=== PATIENT | female | born 1995 | race American Indian/Alaskan Native ===

== ENCOUNTER 2018-05-11 16:08 | Emergency (ER) | payer MEDICAID, SELFPAY ==
[2018-05-11 16:12] VITALS: BP 117/82; PULSE 75; RESP 14; TEMP 36.6; O2SAT 95
[2018-05-11] MEDS: ACETAMINOPHEN 325 MG TABLET 975 MG PO (16:17)
[2018-05-11] MEDS: IBUPROFEN 400 MG TABLET 800 MG PO (16:18)
--- NOTE | 2018-05-11 18:18 | ED_ITS ---
HPI - URI/Sore Throat General Chief Complaint: Upper Respiratory Symptoms Stated Complaint: LEFT EAR PAIN THROAT HURTS Time Seen by Provider: 05/11/18 18:07 Source: patient Mode of arrival: ambulatory Limitations: no limitations History of Present Illness HPI Narrative: Patient is a 22-year-old female who presents with left ear pain. She has been having fever body aches and upper respiratory symptoms ongoing for the last 3 days. However her left ear 3rd hurting quite badly today. She was given Tylenol and Motrin in the ED she no longer has pain. She was having some mild sore throat. No shortness of breath or productive cough. She has no neck pain or headache. MD Complaint: sore throat (Dry), nasal congestion and sinus pain Onset (ago): day(s) (3) Severity: mild Relieving factors: NSAID Related Data Previous Rx's Medication Instructions Recorded amoxicillin 500 mg PO TID 7 Days #21 cap 05/11/18 Allergies Allergy/AdvReac Type Severity Reaction Status Date / Time No Known Drug Allergies Allergy Verified 05/11/18 16:14 Review of Systems Review of Systems ROS Unobtainable: All systems reviewed & are unremarkable except as noted in HPI and below Constitutional Denies chills, Denies fever(s), Denies lethargy and Denies weakness ENT Ears, Nose, Mouth, and Throat: Reports as per HPI Cardiovascular Denies chest pain, Denies irregular heart rhythm, Denies lightheadedness, Denies palpitations, Denies dyspnea and Denies orthopnea Respiratory Denies change in phlegm color, Denies chest congestion, Reports cough, Denies pain on inspiration and Denies dyspnea Gastrointestinal Gastrointestinal: Denies abdominal pain, Denies change in bowel habits, Denies diarrhea, Denies nausea and Denies vomiting Musculoskeletal Denies back pain, Denies muscle weakness, Denies numbness and Denies tingling Integumentary/Breasts Denies pruritus, Denies erythema, Denies rash and Denies wounds Neurologic Denies numbness, Denies tingling and Denies weakness Endocrine Denies palpitations [facility] Social History Smoking Status: Never smoker Social History Smoking Status: Never smoker Exam Initial Vital Signs Initial Vital Signs: Vital Signs Temperature 97.8 F 05/11/18 16:12 Pulse Rate 75 05/11/18 16:12 Respiratory Rate 14 05/11/18 16:12 Blood Pressure 117/82 02/04/19 16:12 Pulse Oximetry 95 05/11/18 16:12 GENERAL: Well-appearing, well-nourished and in no acute distress. HEENT: Head atraumatic,EOMI, pupils reactive, neck is symmetric EARS: Low left tympanic membrane is erythematous slightly bulging mastoid is nontender PHARYNX:] No erythema, no tonsillar exudate, no cervical lymphadenopathy CARDIOVASCULAR: Regular rate and rhythm without murmurs, rubs or gallops. RESPIRATORY: Breath sounds equal bilaterally, no wheezes rales or rhonchi. ABDOMEN: Soft, nontender. Normoactive bowel sounds all 4 quadrants. No guarding or rebound. EXTREMITIES: Normal range of motion, no clubbing or edema. Neurovascularly intact NEUROLOGICAL: Alert and oriented x4.Normal gait and speech. Cranial nerves II through XII grossly intact. SKIN: Warm, dry, no laceration, no petechiae, no rashes or lesions. Course Orders Ordered: Discontinued Medications Acetaminophen (Tylenol) 975 mg PO NOW ONE Stop: 05/11/18 16:15 Last Admin: 05/11/18 16:17 Dose: 975 mg Ibuprofen (Advil) 800 mg PO NOW ONE Stop: 05/11/18 16:15 Last Admin: 05/11/18 16:18 Dose: 800 mg Vital Signs - 8 hr 05/11/18 16:12 Temperature 97.8 F Pulse Rate 75 Respiratory Rate 14 Blood Pressure 117/82 Pulse Oximetry 95 MDM - URI/Sore Throat Lab Data Point of Care Testing Rapid Strep A Negative Discharge Plan Departure Patient Disposition: Home Clinical Impression: Acute left otitis media Discharge Date/Time: 05/11/18 18:25 Interventions: ED Discharge Assessment Last Done: 05/11/18 18:25 Instructions: Middle Ear Infection Activity Restrictions/Additional Instructions: *You have been diagnosed with left ear infection *What to do: Rest, fever control *Continue to take medications as directed Amoxicillin 500 3 times a day for 7 days *Follow up with your primary care provider in 2-3 days *Return to ER if you should have increasing pain, persistent fever or any new, worsening or concerning symptoms Prescriptions: New amoxicillin 500 mg capsule 500 mg PO TID 7 Days Qty: 21 RF: 0
== END 2018-05-11 18:25 | disposition home or self-care (01) ==
PROVIDERS: Emergency Provider Emergency Medicine
DX: H66.92 Otitis media, unspecified, left ear (principal)
CPT/HCPCS: 87880; 99283

== ENCOUNTER 2019-05-24 09:50 | Observation (INO) | payer MEDICAID, SELFPAY ==
[2019-05-24 09:59] VITALS: BP 107/67; PULSE 57; RESP 15; TEMP 36.7; O2SAT 100; BMI 28.3
[2019-05-24 10:06] LABS: RBC Urine None Seen (0-5/HPF)
[2019-05-24 10:18] LABS: Add Manual Diff / Slide Review NO; Basophils Absolute Auto 100 /uL (0-100); Basophils Percent Auto 1.3 % (0-2); Eosinophils Absolute Auto 100 /uL (0-450); Eosinophils Percent Auto 2.1 % (2-4); Hematocrit 41.4 % (36-46); Hemoglobin 14.1 g/dL (12.0-16.0); Lymphocytes Absolute Auto 2000 /uL (1100-4500); Lymphocytes Percent Auto 29.1 % (25-40); Mean Corpuscular HGB Conc 34.1 % (30-36); Monocytes Absolute Auto 400 /uL (0-900); Monocytes Percent Auto 5.1 % (3-14); Neutrophils Absolute Auto 4400 /uL (1500-7000); Neutrophils Percent Auto 62.4 % (50-75); Platelet Count 312 X10^3/uL (150-400); Red Blood Cell Count 4.88 X10^6/uL (4.0-5.2); Red Cell Distribution Width 14.7 % (11.6-14.8)
[2019-05-24 10:23] LABS: INR 1.1 (0.9-1.3); Prothrombin Time 13.1 SECONDS (10.1-12.7)
[2019-05-24 10:26] LABS: PTT Partial Thromboplastin Tim 28 SECONDS (26.4-36.2)
[2019-05-24 10:28] LABS: Alanine Aminotransferase 36 IU/L (<35); Albumin 4.3 g/dL (3.5-5.0); Albumin Globulin Ratio 1.2 (1.0-2.8); Alkaline Phosphatase 84 U/L (38-126); Aspartate Aminotransferase 115 IU/L (14-36); Bilirubin Total 0.5 mg/dL (0.2-1.3); Blood Urea Nitrogen 7 mg/dL (7-17); Calcium 9.3 mg/dL (8.4-10.2); Carbon Dioxide 30 mmol/L (22-32); Chloride 105 mmol/L (98-107); Estimated Glomerular Filt Rate > 60.0 mL/min (>60); Globulin 3.6 g/dL (1.7-4.1); Glucose 101 mg/dL (70-100); HEMOLYSIS 23 (0-50); Lipase 82 U/L (23-300); Potassium 3.9 mmol/L (3.4-5.1); Sodium 141 mmol/L (137-145); Total Protein 7.9 g/dL (6.3-8.2)
--- NOTE | 2019-05-24 10:36 | DI.US.S_ITS ---
PROCEDURE: US ABDOMEN LIMITED INDICATIONS: RIGHT UPPER QUADRANT PAIN TECHNIQUE: Real-time focused scanning was performed of the abdomen, with image documentation. COMPARISON: [facility], US, US ABDOMEN COMPLETE, 02/19/2019, 15:00. FINDINGS: Visualized liver demonstrates normal size and diffusely increased echotexture. There are gallstones. There is a 7.4 mm stone lodged in the gallbladder neck. No gallbladder wall thickening or pericholecystic fluid. The sonographic Voss's sign is positive. Common bile duct is dilated measuring 10.2 mm in diameter. Visualized pancreas is normal. IMPRESSION: 1. Cholelithiasis. There is a 7.4 mm stone lodged in the gallbladder neck. No other wall thickening or pericholecystic fluid. There is, however, positive sonographic Voss sign. 2. Dilated common bile duct. Please correlate with serum bilirubin for biliary obstruction. 3. Diffusely increased hepatic echotexture. This finding is most likely secondary to hepatic fatty infiltration although other hepatocellular disease may have a similar appearance. Recommend clinical correlation. Dictated by: Kevin Vargas M.D. on 05/24/2019 at 11:25 Approved by: Kevin Vargas M.D. on 05/24/2019 at 11:30
--- NOTE | 2019-05-24 10:36 | DI.RAD.S_ITS ---
PROCEDURE: XR ACUTE ABDOMEN SERIES INDICATIONS: abdominal cramps and chest pain TECHNIQUE: One view chest and two views of the abdomen were acquired. COMPARISON: [facility], , ABDOMEN COMPLETE, 02/19/2019, 15:00. FINDINGS: Surgical changes and devices: None. Chest: Lungs are clear. Heart size is normal. No pleural effusions. No pneumoperitoneum. Abdomen: Bowel gas pattern is normal. No suspicious calcifications. Visualized solid organ contours appear normal. Bones: No suspicious bony lesions. IMPRESSION: 1. No bowel obstruction. 2. No acute cardiopulmonary process. Dictated by: Jay Lamb M.D. on 05/24/2019 at 10:24 Approved by: Jay Lamb M.D. on 05/24/2019 at 10:25
[2019-05-24 10:48] LABS: Squamous Epithelial Cell Urine 1-5 /HPF (0-5/HPF); WBC Urine 0-1/HPF (0-5/HPF)
[2019-05-24 10:49] LABS: Amorphous Sediment Urine 2+; Bacteria Urine Few (2-10); Culture Indicated Urine Cult Not Indicated
[2019-05-24] MEDS: DICYCLOMINE 10 MG CAPSULE 20 MG PO (10:49)
[2019-05-24] MEDS: KETOROLAC 60 MG/2 ML VIAL 30 MG IV (10:49)
[2019-05-24] MEDS: PANTOPRAZOLE 40 MG VIAL IV (10:49)
[2019-05-24] MEDS: ONDANSETRON 4 MG/2 ML INJ IV (10:49)
[2019-05-24 10:50] LABS: Pregnancy Test Urine Negative (Negative)
--- NOTE | 2019-05-24 11:12 | ED.ABDPAIN ---
HPI - Abdominal Pain General Chief Complaint: Abdominal Pain Stated Complaint: abomdinal pain Time Seen by Provider: 05/24/19 10:27 Source: patient Mode of arrival: Ambulatory History of Present Illness HPI narrative: CC: Epigastric abdominal pain History of present illness: The patient is a 23-year-old female who presents to the emergency department complaining that she developed severe epigastric pain that was sharp in nature radiating straight through to her back. The pain started at approximately 2:00 a.m. in the morning when it woke her from sleep. At 7:30 a.m. she ate breakfast and the pain got worse. Last night she ate dinner at [facility] at approximately 9:00 p.m.. She has had similar pains before and was treated at [place]. She was told at that time she had something wrong with her pancreas. She denies ever being told that she had troubles with her golf bladder. She has had no indigestion. She denies a history of irritable bowel syndrome peptic ulcer disease Crohn's disease ulcerative colitis. She does not smoke cigarettes or use any drugs she periodically drinks alcohol. She has felt feverish but has not had chills or sweats. She denies any shortness of breath cough. The chest pain is sharp. She has had nausea and vomiting without hematemesis coffee-ground emesis. She has had no diarrhea and has not had melena or hematochezia. She denies any urinary symptoms. Related Data Home Medications Medication Instructions Recorded Confirmed No Known Home Medications 05/24/19 05/24/19 Allergies Allergy/AdvReac Type Severity Reaction Status Date / Time No Known Drug Allergies Allergy Verified 05/24/19 09:59 Review of Systems Review of Systems Narrative: Review of systems were negative except for those mentioned in the history of present illness. Patient History Social History household members: family Smoking Status: Never smoker Smoking Status: Never smoker alcohol intake frequency: 0-2 drinks per day Substance Use Type: does not use Exam Narrative Exam Narrative: PHYSICAL EXAM: CONSTITUTIONAL: Awake, Alert, Oriented, Coherent, Cooperative in moderate distress crying holding her abdomen HEAD: AT/NC EENT: PERRL, FROM of eyes, no discharge, no nystagmus Oral mucosa is moist and pink, posterior pharynx is without erythema or exudate. NECK: Supple, no obvious JVD, Trachea is midline without stridor, no palpable LN or masses. SPINE: No gross deformity, no palpable tenderness of the cervical, thoracic, lumbar or sacral spine. No CVA tenderness. THORAX: No deformity, retractions, chest wall tenderness, subcutaneous air or crepitice. LUNGS: Clear with symmetrical breath sounds without respiratory distress HEART: Normal heart tones, regular rhythm and rate without murmur. ABDOMEN: Tender to palpation in the right upper quadrant and epigastrium with mild guarding no rebound EXTREMITIES: No edema, cyanosis, deformity or tenderness. SKIN: No rash, bruising, petechiae or purpura. NEURO: Awake, alert, oriented, conversive, cranial nerves II-XII are symmetrical and normal, moves all 4 extremities and is ambulatory Initial Vital Signs Initial Vital Signs: Vital Signs Temperature 98.1 F 05/24/19 09:59 Pulse Rate 57 L 05/24/19 09:59 Respiratory Rate 15 05/24/19 09:59 Blood Pressure 107/67 05/24/19 09:59 Pulse Oximetry 100 05/24/19 09:59 Course Course Course Narrative: The patient's ultrasound of the right upper quadrant revealed the common bile duct to be dilated there was a 7 mm stone in the neck of the gallbladder according to the site supervising technical operator. There was no evidence of acute cholecystitis. Call was placed to Dr. Membreno the general surgeon on-call and the patient was admitted to his service. She was administered 2 g of cefotetan Orders Ordered: Sodium Chloride (Normal Saline 0.9%) 1,000 mls @ 150 mls/hr IV CONT RAUL Last Admin: 05/24/19 14:13 Dose: 150 mls/hr Documented by: Infusion: 05/24/19 14:13 Dose: 150 mls/hr Documented by: Admin: 05/24/19 12:11 Dose: 150 mls/hr Documented by: SCANAPO Influenza Virus Vaccine (Flu Vaccine) 0.5 ml IM .ONCE ONE Stop: 05/25/19 09:06 Discontinued Medications Dicyclomine HCl (Bentyl) 20 mg PO NOW ONE Stop: 05/24/19 10:37 Last Admin: 05/24/19 10:49 Dose: 20 mg Documented by: SCANAPO Cefotetan Disodium/Dextrose (Cefotan) 2 gm in 50 mls @ 100 mls/hr IV NOW ONE Stop: 05/24/19 12:33 Last Infusion: 05/24/19 13:09 Dose: 0 mls/hr Documented by: Admin: 05/24/19 12:10 Dose: 100 mls/hr Documented by: APOLONIA Ketorolac Tromethamine (Toradol) 30 mg IV INTRA-OP ONE Stop: 05/24/19 10:37 Last Admin: 05/24/19 10:49 Dose: 30 mg Documented by: APOLONIA Morphine Sulfate (Morphine) 4 mg IV NOW ONE Stop: 05/24/19 11:13 Last Admin: 05/24/19 11:20 Dose: 4 mg Documented by: APOLONIA Non-Formulary Medication (Cefatetan) 2 gm IV NOW ONE Stop: 05/24/19 11:48 Last Admin: 05/24/19 12:11 Dose: Not Given Documented by: APOLONIA Ondansetron HCl (Zofran) 4 mg IV NOW ONE Stop: 05/24/19 10:37 Last Admin: 05/24/19 10:49 Dose: 4 mg Documented by: APOLONIA Pantoprazole Sodium (Protonix) 40 mg IV NOW ONE Stop: 05/24/19 10:43 Last Admin: 05/24/19 10:49 Dose: 40 mg Documented by: APOLONIA Vital Signs Vital signs: Vital Signs - 8 hr 05/24/19 09:59 Temperature 98.1 F Pulse Rate 57 L Respiratory Rate 15 Blood Pressure 107/67 Pulse Oximetry 100 MDM - Abdominal Pain Medical Records Attestation: I reviewed the patient's medical records. Lab Data Attestation: I reviewed the patient's lab results. Result diagrams: 05/24/19 10:10 05/24/19 10:10 Labs: Lab Results 05/24/19 05/24/19 05/24/19 Range/Units 10:04 10:04 10:10 WBC 7.0 (4.5-11.0) X10^3/uL RBC 4.88 (4.0-5.2) X10^6/uL Hgb 14.1 (12.0-16.0) g/dL Hct 41.4 (36-46) % MCV 85.0 (80-100) fL MCH 29.0 (26-34) PG MCHC 34.1 (30-36) % RDW 14.7 (11.6-14.8) % Plt Count 312 (150-400) X10^3/uL Neut % (Auto) 62.4 (50-75) % Lymph % (Auto) 29.1 (25-40) % [place] % (Auto) 5.1 (3-14) % Eos % (Auto) 2.1 (2-4) % Baso % (Auto) 1.3 (0-2) % Neut # (Auto) 4400 (2566-1543) /uL Lymph # (Auto) 2000 (4659-3299) /uL [place] # (Auto) 400 (0-900) /uL Eos # (Auto) 100 (0-450) /uL Baso # (Auto) 100 (0-100) /uL PT (10.1-12.7) SECONDS INR (0.9-1.3) APTT (26.4-36.2) SECONDS Sodium (137-145) mmol/L Potassium (3.4-5.1) mmol/L Chloride (98-107) mmol/L Carbon Dioxide (22-32) mmol/L BUN (7-17) mg/dL Creatinine (0.52-1.04) mg/dL Estimated GFR (>60) mL/min BUN/Creatinine Ratio (6-22) Glucose (70-100) mg/dL Calcium (8.4-10.2) mg/dL Total Bilirubin (0.2-1.3) mg/dL AST (14-36) IU/L ALT (<35) IU/L Alkaline Phosphatase (38-126) U/L Total Protein (6.3-8.2) g/dL Albumin (3.5-5.0) g/dL Globulin (1.7-4.1) g/dL Albumin/Globulin Ratio (1.0-2.8) Lipase (23-300) U/L Urine RBC None seen (0-5/HPF) Urine WBC 0-1/hpf (0-5/HPF) Ur Squamous Epith Cells 1-5 /hpf (0-5/HPF) Amorphous Sediment 2+ Urine Bacteria Few (2-10) H (None) Ur Culture Indicated? Cult not indicated Urine Test Negative (Negative) 05/24/19 05/24/19 Range/Units 10:10 10:10 WBC (4.5-11.0) X10^3/uL RBC (4.0-5.2) X10^6/uL Hgb (12.0-16.0) g/dL Hct (36-46) % MCV (80-100) fL MCH (26-34) PG MCHC (30-36) % RDW (11.6-14.8) % Plt Count (150-400) X10^3/uL Neut % (Auto) (50-75) % Lymph % (Auto) (25-40) % [place] % (Auto) (3-14) % Eos % (Auto) (2-4) % Baso % (Auto) (0-2) % Neut # (Auto) (0001-9919) /uL Lymph # (Auto) (8843-1603) /uL [place] # (Auto) (0-900) /uL Eos # (Auto) (0-450) /uL Baso # (Auto) (0-100) /uL PT 13.1 H (10.1-12.7) SECONDS INR 1.1 (0.9-1.3) APTT 28 (26.4-36.2) SECONDS Sodium 141 (137-145) mmol/L Potassium 3.9 (3.4-5.1) mmol/L Chloride 105 (98-107) mmol/L Carbon Dioxide 30 (22-32) mmol/L BUN 7 (7-17) mg/dL Creatinine 0.50 L (0.52-1.04) mg/dL Estimated GFR > 60.0 (>60) mL/min BUN/Creatinine Ratio 14.0 (6-22) Glucose 101 H (70-100) mg/dL Calcium 9.3 (8.4-10.2) mg/dL Total Bilirubin 0.5 (0.2-1.3) mg/dL AST 115 H (14-36) IU/L ALT 36 H (<35) IU/L Alkaline Phosphatase 84 (38-126) U/L Total Protein 7.9 (6.3-8.2) g/dL Albumin 4.3 (3.5-5.0) g/dL Globulin 3.6 (1.7-4.1) g/dL Albumin/Globulin Ratio 1.2 (1.0-2.8) Lipase 82 (23-300) U/L Urine RBC (0-5/HPF) Urine WBC (0-5/HPF) Ur Squamous Epith Cells (0-5/HPF) Amorphous Sediment Urine Bacteria (None) Ur Culture Indicated? Urine Test (Negative) Point of care testing: Urine Dip Bedside Urine Glucose Negative Bedside Urine Bilirubin - Negative Bedside Urine Ketone - Negative Urine Specific [place] 1.015 Bedside Urine Occult Blood - Negative Bedside Urine pH 6.5 Bedside Urine Protein +/- 15 Bedside Urine Urobilinogen +/- 1mg Bedside Urine Nitrite - Negative Bedside Urine Leukocytes - Negative Esterase ECG Data Attestation: I personally reviewed and interpreted this ECG as follows: Interpretation: The patient's EKG revealed a sinus bradycardia with a ventricular rate of 58. Intervals are normal. Lisman is normal. The patient has inverted T-waves in leads V1. There are no other acute diagnostic ST segment changes. Her EKG is normal. Discharge Plan Departure Patient Disposition: Admitted as Observation Clinical Impression: Epigastric abdominal pain Chest pain Qualifiers: Chest pain type: unspecified Qualified Code(s): R07.9 - Chest pain, unspecified Cholelithiasis Qualifiers: Cholelithiasis location: gallbladder Cholecystitis presence: without cholecystitis Biliary obstruction: with biliary obstruction Qualified Code(s): K80.21 - Calculus of gallbladder without cholecystitis with obstruction Discharge Date/Time: 05/24/19 13:55 Admit Date/Time: 05/24/19 13:18 Admit Provider: Andrey Membreno
[2019-05-24] MEDS: MORPHINE 4 MG/ML INJ IV (11:20)
[2019-05-24 11:52] VITALS: BP 113/66; PULSE 56; RESP 15; O2SAT 99
[2019-05-24] MEDS: CEFOTETAN 2 GM/50 ML PIGGYBACK IV ×2 (12:10→20:43)
[2019-05-24] MEDS: SODIUM CHLORIDE 0.9% 1,000 ML 150 ML IV ×2 (12:11→14:13)
[2019-05-24 13:56] VITALS: BP 122/75; PULSE 67; RESP 16; TEMP 36.7
[2019-05-24 14:00] VITALS: BMI 28.3
--- NOTE | 2019-05-24 14:20 | PC.NURSE ---
Patient to room 1400,alert, oriented denies abdominal pain at this time, medicated in ER with morphine IVP. Denies nausea. Oriented to room and call light.
[2019-05-24 16:56] VITALS: BP 112/52; PULSE 58; RESP 18; TEMP 36.5
[2019-05-24 19:53] VITALS: BP 105/63; PULSE 55; RESP 20; TEMP 36.7
--- NOTE | 2019-05-24 19:59 | PM.HP.1 ---
History of Present Illness History of Present Illness Date Patient Seen: 05/24/19 Time Patient Seen: 20:00 Chief complaint: abomdinal pain Narrative: The patient is a woman who developed pain through the night and presented to the emergency room. This is happened once before and he preferred she presented to a an outside hospital where she was told she had reflux and pancreatitis. She has been nauseated did not vomit. No prior operations. Her pain is been relieve since she received pain medicine earlier today. Patient History Family & Social History Social History: household members family Prior Living Arrangements House Safety & Behavioral: Feels Safe in Current Yes Environment Been Physically Hurt or No Threatened By a Person Suicidal Ideation Description None Tobacco & Substance use: Smoking Status Never smoker alcohol intake frequency 0-2 drinks per day Substance Use Type does not use Meds Home Medications and Allergies Home Medications Medication Instructions Recorded Confirmed Type No Known Home Medications 05/24/19 05/24/19 History Allergies Allergy/AdvReac Type Severity Reaction Status Date / Time No Known Drug Allergies Allergy Verified 05/24/19 09:59 Review of Systems Review of Systems Narrative: Patient denies double vision pain arise tooth aches trouble swallowing except for when this pain developed. She normally does not have any breathing issues cough or cold. She did have some sharp pain with deep breathing when she had the pain. No heart problems or murmurs. No black or bloody bowel movements. No blood in her urine or kidney stones. No seizures or blackouts. Last period was early May. It was normal. Exam Vital Signs (past 8 hours): - 05/24/19 13:56 05/24/19 16:56 05/24/19 19:53 Temperature 98.1 F 97.7 F 98.1 F Pulse Rate 67 58 L 55 L Respiratory Rate 16 18 20 Blood Pressure 122/75 112/52 L 105/63 Oxygen Delivery Method Room Air Narrative Exam Narrative: Cooperative no apparent distress. Her eyes are nonicteric. Pupils equal round reactive to light. Lungs are clear to auscultation no rales or rhonchi. Heart regular rate and rhythm no murmur gallop. Abdomen is mildly protuberant soft nontender there are no masses. Liver and spleen are not enlarged. Patient is alert and oriented x3. Speech rate and content are appropriate. Objective Imaging US - abdomen: My impression: Gallstones. Mild dilatation of the common bile duct. Labs Result Diagrams: 05/24/19 10:10 05/24/19 10:10 Labs: Laboratory Results - last 24 hr 05/24/19 05/24/19 05/24/19 10:04 10:04 10:10 WBC 7.0 RBC 4.88 Hgb 14.1 Hct 41.4 MCV 85.0 MCH 29.0 MCHC 34.1 RDW 14.7 Plt Count 312 Neut % (Auto) 62.4 Lymph % (Auto) 29.1 [place] % (Auto) 5.1 Eos % (Auto) 2.1 Baso % (Auto) 1.3 Neut # (Auto) 4400 Lymph # (Auto) 2000 [place] # (Auto) 400 Eos # (Auto) 100 Baso # (Auto) 100 PT INR APTT Sodium Potassium Chloride Carbon Dioxide BUN Creatinine Estimated GFR BUN/Creatinine Ratio Glucose Calcium Total Bilirubin AST ALT Alkaline Phosphatase Total Protein Albumin Globulin Albumin/Globulin Ratio Lipase Urine RBC None seen Urine WBC 0-1/hpf Ur Squamous Epith Cells 1-5 /hpf Amorphous Sediment 2+ Urine Bacteria Few (2-10) H Ur Culture Indicated? Cult not indicated Urine Test Negative 05/24/19 05/24/19 10:10 10:10 WBC RBC Hgb Hct MCV MCH MCHC RDW Plt Count Neut % (Auto) Lymph % (Auto) [place] % (Auto) Eos % (Auto) Baso % (Auto) Neut # (Auto) Lymph # (Auto) [place] # (Auto) Eos # (Auto) Baso # (Auto) PT 13.1 H INR 1.1 APTT 28 Sodium 141 Potassium 3.9 Chloride 105 Carbon Dioxide 30 BUN 7 Creatinine 0.50 L Estimated GFR > 60.0 BUN/Creatinine Ratio 14.0 Glucose 101 H Calcium 9.3 Total Bilirubin 0.5 AST 115 H ALT 36 H Alkaline Phosphatase 84 Total Protein 7.9 Albumin 4.3 Globulin 3.6 Albumin/Globulin Ratio 1.2 Lipase 82 Urine RBC Urine WBC Ur Squamous Epith Cells Amorphous Sediment Urine Bacteria Ur Culture Indicated? Urine Test Assessment & Plan Assessment & Plan narrative: Patient is a woman with symptomatic gallbladder disease. I discussed removal of her gallbladder with her and possible intraoperative cholangiogram. Risks of bleeding infection hernia all discussed. I also discussed possible injury to the internal organs or ducts and bile leakage. Discussed the possibility of a postop ERCP for common bile duct stones. Given her history of being told she had pancreatitis is and the dilated duct is prior worthwhile to perform a cholangiogram if possible. She understands that either I or Dr. Yeager will be doing the operation and will occur sometime tomorrow morning. All questions were answered. Quality VTE Deep Vein Thrombosis/Pulmonary Embolism Present on Admission: No
[2019-05-24 20:08] VITALS: O2SAT 97
[2019-05-24] MEDS: DEXTROSE 5%-LACTATED RINGERS 1,000 ML 100 ML IV (20:43)
[2019-05-25] VITALS (18 sets, daily range): BP systolic 93–124; BP diastolic 48–75; PULSE 55–72; RESP 15–20; TEMP 36.1–37.1; O2SAT 95–100; BMI 28.3
--- NOTE | 2019-05-25 | PATH_ITS ---
[facility] Accession Number: [id number] . 01 Material submitted: . gallbladder - GALLBLADDER AND CONTENTS . 01 Clinical history: . ABDOMINAL PAIN . 02 Diagnosis: Gallbladder, Cholecystectomy: Chronic cholecystitis with cholelithiasis and cholesterolosis. No evidence of dysplasia or malignancy. MRV 05/27/2019 1031 Local . 02 Electronically signed: . Elizabeth Rodríguez MD, Pathologist NPI- [id number] . 01 Gross description: . Received in formalin, labeled gallbladder and content, is an intact gallbladder (length-5.8 cm, diameter-2.8 cm) with wynn-pink smooth shiny serosa and a patent cystic duct. No lymph nodes are identified. The lumen contains red-brown, viscous bile and multiple pale yellow, gritty, friable calculi (0.4 x 0.4 x 0.3 cm in aggregate). The mucosa is pale bangura and rough. The wall is up to 0.1 cm thick. No nodules, masses or lesions are identified. Section code: (A1) cystic duct resection margin and two serial sections from the body; (A2) two longitudinal sections from the fundus. ([id number]) /MRV 05/26/2019 1337 Local . 02 Pathologist provided ICD-10: K80.60 . 02 CPT . 412516 Performed at: 01 [facility] [address], [place], [place] [id number] MD Kyle Almaraz MD Phone: [phone] Performed at: 02 [facility] [address] [place], [place] [id number] MD Elizabeth Rodríguez MD Phone: [phone]
--- NOTE | 2019-05-25 | DI.RAD.S_ITS ---
PROCEDURE: XR CHOLANGIOGRAM OPERATIVE INDICATIONS: LAP MIRNA COMPARISON: [facility], , US ABDOMEN LIMITED, 05/24/2019, 10:50. FINDINGS: Biliary ducts: The surgeon injected contrast into the biliary ducts after cannulation of the cystic duct stump. Visualized intra- and extrahepatic bile ducts are normal in caliber, without strictures. No intraluminal filling defects to suggest retained ductal stones or sludge. No evidence for iatrogenic ductal injury. Duodenum: Contrast flows promptly through the sphincter of Oddi into the duodenum, which appears normal in caliber. IMPRESSION: Normal operative cholangiogram. Dictated by: Yogesh Pacheco M.D. on 05/25/2019 at 11:24 Approved by: Yogesh Pacheco M.D. on 05/25/2019 at 11:24
--- NOTE | 2019-05-25 01:00 | PC.NURSE ---
C/O pain & nausea pain. Dr. Membreno notified orders received for Toradol 30 mg. IVP X1. Also order Dilaudid 1 mg. IVP every 4 hrs. prn for pain & Zofran 4 mg. IVP every 4 hrs. prn. for nausea. Will enter order& implement after night pharmacy verified orders. Will monitor.
[2019-05-25] MEDS: KETOROLAC 30 MG/ML VIAL IV (01:42)
[2019-05-25] MEDS: ONDANSETRON 4 MG/2 ML INJ IV (01:46)
--- NOTE | 2019-05-25 04:53 | PC.NURSE ---
At 0200 Pt. C/O anxiety & chest heaviness. RT. notified EKG done showed Norm vent rate 49. VS this morning 99/58 & HR 55. Denies nausea & pain @ this time.
[2019-05-25 06:58] LABS: Alanine Aminotransferase 260 IU/L (<35); Albumin 3.4 g/dL (3.5-5.0); Albumin Globulin Ratio 1.1 (1.0-2.8); Alkaline Phosphatase 85 U/L (38-126); Aspartate Aminotransferase 332 IU/L (14-36); Bilirubin Total 0.7 mg/dL (0.2-1.3); Blood Urea Nitrogen 4 mg/dL (7-17); Calcium 8.6 mg/dL (8.4-10.2); Carbon Dioxide 24 mmol/L (22-32); Chloride 109 mmol/L (98-107); Estimated Glomerular Filt Rate > 60.0 mL/min (>60); Glucose 104 mg/dL (70-100); HEMOLYSIS < 15 (0-50); Potassium 3.8 mmol/L (3.4-5.1); Sodium 139 mmol/L (137-145); Total Protein 6.4 g/dL (6.3-8.2)
--- NOTE | 2019-05-25 07:33 | PC.NURSE ---
Day shift:\ This AM at approx 0725 Pt not happy about this property underwriter coming into room. Asked Pt to use call light if she needed anything. Pt's friend in room as well and they are sleeping on couch. Per RN report Pt independent in room.
[2019-05-25] MEDS: DEXTROSE 5%-LACTATED RINGERS 1,000 ML 100 ML IV (07:58)
--- NOTE | 2019-05-25 08:35 | PC.NURSE ---
Day shift: Pt off unit at approx 0815 for surgery.
[2019-05-25] MEDS: LACTATED RINGERS 1,000 ML 42 ML IV ×2 (08:50→12:49)
--- NOTE | 2019-05-25 09:14 | PM.PREOP ---
Pre-operative Note Interval Note History & Physical reviewed/Exam performed by Physician: Yes Changes to H&P: No
[2019-05-25] MEDS: CEFAZOLIN 2 GM/100 ML FROZ.PIGGY IV (09:45)
--- NOTE | 2019-05-25 10:05 | SUR.OPER ---
Supine on padded OR bed, head on pillow, arms secured on padded arm boards at <90 degrees abduction, legs uncrossed, safety belt at thigh, tape over blanket over lower legs.
[2019-05-25] MEDS: BUPIVACAINE 0.25% (PF) VIAL 30 ML INJ (10:51)
[2019-05-25] MEDS: IOPAMIDOL 15 ML VIAL INJ (10:52)
[2019-05-25] MEDS: SODIUM CHLORIDE 0.9% FLUSH 10 ML IV (10:54)
[2019-05-25] MEDS: HYDROMORPHONE 2 MG INJ IV ×2 (11:30→11:40)
--- NOTE | 2019-05-25 11:36 | PM.OP.1 ---
Operative Date/Time/Diagnoses Date of procedure: 05/25/19 Time of procedure: 11:36 Pre-op diagnosis: acute cholecystitis hx of gallstone pancreatitis Post-op diagnosis: same Procedure & Clinicians Procedure: Laparoscopic cholecystectomy Intraoperative cholangiogram Same procedure as scheduled: Yes Indications: 23-year-old female presented with acute cholecystitis and gallstone within the neck of the gallbladder history of gallstone pancreatitis Surgeon: Vivek Yeager Click Yes if Unassisted: Yes Anesthesia Type: General Operative Notes Findings: Acute cholecystitis Normal cholangiogram Specimen(s): other (Gallbladder) Estimated Blood Loss (mL): 15 Procedure in detail: The patient was brought to the operating room placed supine on the table. Bilateral lower extremity compression devices were applied. General anesthesia was induced and they were intubated with an endotracheal tube. They received 2g of Ancef prior to skin incision. A time-out was performed to ensure the correct patient procedure necessary equipment within the operating room. They were then prepped and draped in the usual sterile fashion. Infraumbilical incision was made the umbilical stalk was grasped and elevated and the fascia was sharply incised. The abdomen was entered atraumatically. A 10 mm trocar was then placed into the abdomen. Pneumoperitoneum was established. The laparoscopic camera was inserted into the abdomen inspection was made that demonstrated no evidence of injury upon entry. We then placed our working ports the 1st 11 mm port high in the epigastrium and then two 5mm in the right upper quadrant. The gallbladder was grasped and retracted over the liver and grasped laterally by the fundus. There was evidence of acute cholecystitis demonstrated by fat stranding to the gallbladder The triangle of Calot was exposed. The triangle of calot was then meticulosly skeletonized using hook electrocautery and demonstrated the cystic duct clearly entering the gallbladder the cystic artery and the liver and in the background. With the critical view of safety established the the cystic artery was clipped twice proximal and once distal and divided sharply. Next the cystic duct was transected high on the gallbladder and then the cholangiocatheter was then threaded through the cystic duct. Cholangiogram was performed which demonstrated normal flow of contrast into the duodenum. The cystic duct was then clipped 3 times on the stay side. Next the gallbladder was removed from the liver bed using electro cautery. The liver bed was then inspected for hemostasis and this was achieved. The abdomen was irrigated with sterile saline and inspection was made that showed the clips in good position. The specimen was removed using Endo-Catch. The abdomen was desufflated. The the fascia of the umbilicus was closed with 0 Vicryl in a [id number] fashion. Skin incisions were irrigated and closed with 4-0 Monocryl. The wounds were sealed with Dermabond. Patient emerged from general anesthesia was extubated and transferred to the postoperative care unit missed stable condition. The sponge and instrument count at the end of the operation was correct. Complications: none Post-operative Condition: stable Disposition: same day surgery
--- NOTE | 2019-05-25 12:34 | PC.NURSE ---
Day shift: Pt back on AC unit at approx 1230 from PACU/ The 4 lap sites are CDI. RA 97%. Other VS WNL. Friend in room for support. Pt reports pain 0/10. Pt asleep. Checking new orders. Will continue to monitor.
--- NOTE | 2019-05-25 12:43 | CM.DPNOTE ---
Discharge Planning/Care Management DCP: assessment: case received, EMR reviewed. Discussed in Team Rounds. Went to room to check in with pt and found that she was in surgery. Pt is a 23 year old female who admitted yesterday to care of [place] Surgeons: DR. Membreno Payer: Medicaid Admission status: in review: per UR COLETTE Wright. Pt admitted with dx of of acute cholecystitis and gallstone in neck of bladder. She is currently in surgery for same. P: DCP team will check in with pt post surgery to assist with any d/c needs that may arise. CM Discharge Assessment Start: 05/25/19 12:41 Freq: Status: Active Protocol: Document 05/25/19 12:41 ITV (Rec: 05/25/19 12:43 ITV [id number]) Discharge Planning Assessment Advance Directives? No History Provided By Medical Record Has Patient been admitted in last 30 No days? Prior Living Arrangements House Household Members family Review Status In Process
[2019-05-25] MEDS: HYDROMORPHONE 1 MG INJ IV (13:29)
--- NOTE | 2019-05-25 17:19 | PM.DS.1 ---
History of Present Illness History of Present Illness Date Patient Seen: 05/25/19 Time Patient Seen: 17:19 Chief complaint: abomdinal pain Narrative: This is a 23-year-old female presented with acute cholecystitis based on clinical exam and ultrasound confirming a gallstone lodged within the gallbladder neck. Discharge Providers Provider Date of admission: 05/24/19 13:18 Discharge Date: 05/25/19 Discharge provider: Vivek Yeager MD Summary Hospital Course Discharge Diagnosis: Acute cholecystitis Hospital Course: She underwent a laparoscopic cholecystectomy 05/25/2019 that demonstrated acute cholecystitis. She had an intraoperative cholangiogram that was negative. Postoperatively she did well tolerated a diet her pain is controlled with p.o. medication and urinating normally. She is stable for discharge at this time. Status at Discharge Cognitive/behavioral status at discharge: oriented Functional status at discharge: independent ambulation Overall status at discharge: patient is back to baseline Time Spent with Patient Time spent: Greater than 30 minutes Exam Vital Signs (past 8 hours): - 05/25/19 11:25 05/25/19 11:35 05/25/19 11:40 Temperature 97.8 F Pulse Rate 63 71 58 L Respiratory Rate 16 16 16 Blood Pressure 106/48 L 93/59 L 107/60 Pulse Oximetry 99 99 100 05/25/19 11:45 05/25/19 11:50 05/25/19 11:55 Temperature Pulse Rate 66 64 Respiratory Rate 16 16 17 Blood Pressure 103/57 L 111/62 Pulse Oximetry 100 97 97 05/25/19 12:00 05/25/19 12:05 05/25/19 12:15 Temperature 97.0 F L Pulse Rate 65 60 Respiratory Rate 17 17 Blood Pressure 104/59 L 103/70 Pulse Oximetry 97 98 95 05/25/19 12:25 05/25/19 13:05 05/25/19 13:50 Temperature 97.3 F L 98.8 F 98.1 F Pulse Rate 67 72 62 Respiratory Rate 20 18 18 Blood Pressure 124/75 104/63 115/69 Pulse Oximetry 97 97 95 05/25/19 14:45 05/25/19 15:50 Temperature 98.1 F 98.0 F Pulse Rate 55 L 72 Respiratory Rate 16 16 Blood Pressure 109/64 116/64 Pulse Oximetry 95 98 Oxygen Delivery Method Room Air Oxygen Flow Rate 0 Narrative Exam Narrative: General-no acute distress, well nourished HEENT-moist mucous membranes, no scleral icterus Neck-supple, no lymphadenopathy Chest- non labored respirations, clear to auscultation bilaterally Cardiac-regular rate no peripheral edema Abdomen-incisions clean dry intact abdomen appropriately tender to palpation Extremities-warm, well perfused Neurological-alert and oriented, no focal deficits Objective Labs Result Diagrams: 05/24/19 10:10 05/25/19 06:20 Labs: Laboratory Results - last 24 hr 05/25/19 06:20 Sodium 139 Potassium 3.8 Chloride 109 H Carbon Dioxide 24 BUN 4 L Creatinine 0.50 L Estimated GFR > 60.0 BUN/Creatinine Ratio 8.0 Glucose 104 H Calcium 8.6 Total Bilirubin 0.7 AST 332 H ALT 260 H Alkaline Phosphatase 85 Total Protein 6.4 Albumin 3.4 L Globulin 3.0 Albumin/Globulin Ratio 1.1 Discharge Plan Discharge Plan Patient Disposition: Home Discharge orders & Medications Prescriptions: New oxycodone 5 mg tablet 5 mg PO Q6H PRN (Reason: pain) Qty: 30 RF: 0 acetaminophen [Tylenol] 325 mg capsule 650 mg PO QID PRN (Reason: pain) Qty: 60 RF: 0 Follow up/Referrals: Vivek Yeager MD [Physician] - Diet/Activity/Treatments Diet: Low-fat Activity: No lifting >20 lbs x 4 weeks. Walking only for exercise for 4 weeks[address] while taking narcotics. Skin/Wound/Dressing Care Report to your healthcare provider any signs of infection, such as:: chills, fever, increased pain and unusual drainage Visit Report/Discharge Packet Instructions: DI for Cholecystectomy Discharge Data Attending Provider: Andrey Membreno Admit Date/Time: 05/24/19 13:18 Quality VTE Deep Vein Thrombosis/Pulmonary Embolism Present on Admission: No
--- NOTE | 2019-05-25 17:54 | PC.NURSE ---
Pt denies pain and nausea but states she is not hungry. She is able to drink and has voided 425 + mLs. She has a steady gait and ambulates independently. She was given her discharge information and she states she understands the information and will contact Dr. Yeager for her follow up appointment. Her PIV was removed. She is contacting family for a ride home. VSS, afebrile. Calm and cooperative.
--- NOTE | 2019-06-07 13:10 | PC.NURSE ---
Late entry: [place] stop time 05/24 2112
== END 2019-05-25 18:43 | disposition home or self-care (01) ==
LOC: ED 11:49 → AC 13:19
PROVIDERS: Surgery; Admitting Provider Specialist; Emergency Provider Emergency Medicine; Referring Provider Emergency Medicine; Visit Provider Specialist
PROC: 0FT44ZZ Resection of Gallbladder, Percutaneous Endoscopic Approach (ICD-10-PCS; CPT 47562; principal; 2019-05-25 09:15)
DX: K80.00 Calculus of gallbladder with acute cholecystitis without obstruction (principal); R10.13 Epigastric pain
CPT/HCPCS: 47563; 36415; 74022; 74300; 76000; 76705; 80053; 81003; 81015; 81025; 83690; 85025; 85610; 85730; 93005; 96361; 96365; 96366; 96375; 96376; 99219; 99285; G0378; C9113; J0690; J1100; J1170; J1885; J2250; J2270; J2405; J2704; J3010; J7121

== ENCOUNTER → 2019-12-30 15:56 | Outpatient (CLI) | payer MEDICAID, SELFPAY ==
--- NOTE | 2019-12-30 | DI.RAD.S_ITS ---
PROCEDURE: XR FINGER RT MIN 2V INDICATIONS: PAIN IN RIGHT THUMB NO TRAUMA TECHNIQUE: AP hand, 2 views of the 1st finger(s) acquired. COMPARISON: None. FINDINGS: Bones: No fractures or dislocations. No suspicious bony lesions. Soft tissues: No suspicious soft tissue calcifications. IMPRESSION: No definite radiographic abnormality. If pain persists with conservative management, consider cross sectional imaging such as CT or MRI for further assessment. Dictated by: Faustino Newman [facility] Interpreted: Kiel Bhakta MD on 12/30/2019 at 16:54 Approved by: Kiel Bhakta M.D. on 12/30/2019 at 17:06
== END ==
PROVIDERS: PCP Family Medicine; Referring Provider Family Medicine; Visit Provider Family Medicine
DX: M79.644 Pain in right finger(s) (principal)
CPT/HCPCS: 73140

== ENCOUNTER 2020-11-04 16:30 | Emergency (ER) | payer MEDICAID, SELFPAY ==
[2020-11-04 16:41] VITALS: BP 121/75; PULSE 61; RESP 18; TEMP 36.3; O2SAT 100; BMI 33.6
[2020-11-04 17:38] LABS: COVID19 -Nasal RAPID Negative (Negative)
--- NOTE | 2020-11-04 17:50 | ED.EAR ---
HPI - Ear Problem General Chief complaint: Ear Stated complaint: Ear pain Time Seen by Provider: 11/04/20 16:37 Source: patient Mode of arrival: Family Vehicle Limitations: no limitations History of Present Illness HPI Narrative: 24-year-old female otherwise healthy patient presents with the chief complaint of a few days of right ear pain. She has had runny nose, nasal congestion and occasional dry cough. She has no fever or chills. She denies nausea, vomiting or diarrhea. She denies any recent air travel or scuba diving. She denies any trauma or injury. She has taken a few antihistamines but nothing regularly. Related Data Previous Rx's Medication Instructions Recorded acetaminophen 325 mg capsule 650 mg PO QID PRN #60 cap 05/25/19 (Tylenol) oxycodone 5 mg tablet 5 mg PO Q6H PRN #30 tab 05/25/19 Allergies Allergy/AdvReac Type Severity Reaction Status Date / Time No Known Drug Allergies Allergy Verified 11/04/20 16:40 Review of Systems Review of Systems Narrative: GENERAL: See HPI. HEENT: See HPI RESPIRATORY: Denies dyspnea, cough, wheezing, hemoptysis, sputum. CARDIOVASCULAR: Denies chest pain, palpitations, orthopnea, edema, GASTROINTESTINAL: Denies nausea, vomiting, abdominal pain, diarrhea, constipation, melena. : Denies dysuria, frequency, incontinence, hematuria, urinary retention. MUSCULOSKELETAL: denies weakness, joint pain, or bony pain SKIN: Denies rash, skin lesions, or other NEUROLOGIC: Denies weakness, headache, numbness, change in speech, confusion, seizures, incoordination. PSYCHIATRIC: No concerning psychosocial issues. 12 point review of systems is negative except for those stated above Patient History Social History household members: family Smoking Status: Never smoker alcohol intake: current Smoking Status: Never smoker alcohol intake frequency: a few times a month Substance Use Type: marijuana Exam Narrative Exam Narrative: GEN: AOx3 and in mild distress EYES: Pupils are equal, round, and reactive to light and accommodation. Extraoccular muscles are intact bilaterally. There is no subconjunctival hemorrhage or exudate. ENT: Right tympanic membrane slightly bulging with clear, serous effusion, no swelling, erythema or drainage of the external auditory canal. Left TM unremarkable, clear, flat with normal landmarks. There is [id number]-[id number] clear postnasal drip. No tender lymphadenopathy. CHEST: Lungs are clear to auscultation bilaterally and free of wheezes, rales, or rhonchi. Heart rate is regular rhythm, there are no murmurs, clicks, rubs, or gallops. There is no chest wall tenderness. ABD: Abdomen is soft and nontender. There is no guarding or rebound. Bowel sounds are normal in all 4 quadrants. There is no mass or organomegaly. EXT: Full painless ROM of all extremities with no loss of sensation or strength. SKIN: Warm, pink, and dry. No erythema or rash Initial Vital Signs Initial Vital Signs: Vital Signs Temperature 97.3 F L 11/04/20 16:41 Pulse Rate 61 11/04/20 16:41 Respiratory Rate 18 11/04/20 16:41 Blood Pressure 121/75 11/04/20 16:41 Pulse Oximetry 100 11/04/20 16:41 Course Orders Ordered: ED Orders 11/04/20 17:05 COVID19 -Nasal swab/Pre-Proc Stat Vital Signs Vital signs: Vital Signs - 8 hr 11/04/20 16:41 Temperature 97.3 F L Pulse Rate 61 Respiratory Rate 18 Blood Pressure 121/75 Pulse Oximetry 100 Medical Decision Making Lab Data Labs: Lab Results 11/04/20 Range/Units 17:05 SARS-CoV-2 (PCR) Negative (Negative) Discharge Plan Departure Patient Disposition: Home Clinical Impression: Otitis media Qualifiers: Otitis media type: serous Chronicity: acute Laterality: right Recurrence: non-recurrent Qualified Code(s): H65.01 - Acute serous otitis media, right ear Instructions: DI for Ear Pain-Adult Activity Restrictions/Additional Instructions: *You have been diagnosed with [right otitis media (no indication of bacterial infection, just clear fluid)] *What to do: *Please continue to take your regular medications as directed. As we discussed, please take [id number]-pjaufef cough and cold or allergy sinus medicines that include antihistamine (such as Benadryl, Laura, Claritin) and a decongestant (like phenylephrine or sudafed) as well as anti-inflammatories like Motrin, Advil or Naprosyn *Please follow up with your primary care provider in 2-3 days, call for an appointment. Let them know you were seen in the Emergency Department and that we ask that you be seen in follow up. We will electronically transmit a record of today's note if your PCP is in our system *If you do not have a primary care provider please contact the [facility] Resource line at [phone]. They will ask some questions about your medical history and help get you set up with a doctor in the community. *Return to Emergency Department if you should have any new, worsening or concerning symptoms, such as [fever greater than 101 F, shaking chills, worsening pain, persistent vomiting or other bothersome symptoms] Prescriptions: No Action oxycodone 5 mg tablet 5 mg PO Q6H PRN (Reason: pain) Qty: 30 RF: 0 acetaminophen [Tylenol] 325 mg capsule 650 mg PO QID PRN (Reason: pain) Qty: 60 RF: 0
[2020-11-04 17:52] VITALS: BP 120/74; PULSE 66; RESP 18; O2SAT 98
== END 2020-11-04 17:54 | disposition home or self-care (01) ==
PROVIDERS: Emergency Provider Emergency Medicine
DX: H65.01 Acute serous otitis media, right ear (principal); R05 Cough; Z20.822 Contact with and (suspected) exposure to COVID-19
CPT/HCPCS: 87635; 99281; 99282; C9803

== ENCOUNTER → 2023-08-26 14:47 | Outpatient (CLI) | payer MEDICAID, SELFPAY ==
--- NOTE | 2023-08-26 14:51 | DI.RAD.S_ITS ---
PROCEDURE: XR WRIST RT MIN 3V INDICATIONS: RIGHT WRIST PAIN TECHNIQUE: 4 views of the wrist were acquired. COMPARISON: [facility], , WRIST MINIMUM 3 VIEWS LEFT, 12/12/2016, 10:36. FINDINGS: Bones: No fractures or dislocations. No suspicious bony lesions. Soft tissues: No suspicious soft tissue calcifications. IMPRESSION: No acute bony abnormality. Approved by: Ventura Felder M.D. on 08/26/2023 at 17:48
== END ==
PROVIDERS: Referring Provider Nurse Practitioner Family; Visit Provider Nurse Practitioner Family
DX: M25.531 Pain in right wrist (principal)
CPT/HCPCS: 73110